=== PATIENT | female | born 1970 | race Caucasian/White ===

== ENCOUNTER 2019-07-14 08:51 | Emergency (ER) | payer OTHER ==
[~2019-07-14] VITALS: Ht 165.1 cm; Wt 61.8 kg
[2019-07-14 08:56] VITALS: BP 139/75
[2019-07-14 09:41] LABS: RAPID INFLUENZA A Negative (Negative); RAPID INFLUENZA B Negative (Negative)
--- NOTE | 2019-07-14 10:19 | NUR ---
PT AMBULATORY TO ROOM FROM LOBBY.
== END 2019-07-14 11:22 | disposition home or self-care (01) ==
LOC: ED 11:16
DX: J02.9 Acute pharyngitis, unspecified (principal); R11.2 Nausea with vomiting, unspecified
CPT/HCPCS: 71046; 87400; 99284